=== PATIENT | male | born 1940 | race Caucasian/White ===

== ENCOUNTER 2023-09-06 17:06 | Emergency (ER) | payer MEDICARE, OTHER, SELFPAY ==
[2023-09-06 17:08] VITALS: BP 136/73
--- NOTE | 2023-09-06 18:09 | EDRN ---
Pt's says he has been getting monthly optivo infusions for melanoma that spread to pt's lungs. Recent PET scans reportedly showed spots on lungs were gone. Pt received last infusion last week and since has been more tired than usual, 'his
look has changed', he is cold all the time, has intermittent dizziness, is confused and has no appetite. says he has had these symptoms x 1 week and when their son came over today, he was alarmed and told her pt needed to see a doctor so
called Dr Orozco's office and was advised to take pt to ED for possible dehydration. Pt says 'I sherie campbell.' Pt denies pain, no cp, sob, abd pain, fever/chills/cough, urinary symptoms.
--- NOTE | 2023-09-06 18:25 | ED.GENMED ---
History of Present Illness
General
Chief Complaint: Fatigue
Source: patient, records and significant other
Exam Limitations: none
Time Seen by Provider: 09/06/23 18:00
Nursing documentation reviewed up to this point in time: agreed with
Travel History
Have you had any contact with someone who has COVID-19?: No
Do you have any symptoms of coronavirus? Fever > 100 degrees, chills, cough, shortness of breath, sore throat, loss of taste or smell, muscle aches, or headache?: No
History of Present Illness
History of Present Illness:
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 Sow, oncology, atrial fibrillation currently anticoagulated on
Eliquis, CAD with cardiac stents, prostate cancer who presents to the emergency department accompanied by his for evaluation of generalized weakness. reports that the patient received his infusion last week. She reports that since then,
the patient has become increasingly weak. She reports that is to the point where she fears the patient is going to fall because he feels so weak. Patient reports that his legs feel week bilaterally. Patient denies focal weakness in one extremity.
She reports that his friends and family all agree that he just looks unwell. contacted the patient's oncologist today who referred him to the emergency department for further evaluation. Patient denies presyncope, syncope, recent falls.
Patient denies headache, vision changes, chest pain, shortness of breath, palpitations, abdominal pain, nausea, vomiting. notes decreased appetite and decreased fluid intake. Patient denies constipation. Patient reports he has been urinating
without difficulty. Patient does note bilateral lower extremity edema which is not typical for him. notes that the patient has been more forgetful than usual.
Past History
Past History
ED Past Medical History: CAD, Cancer (metastic melanoma, prostate), HTN and Hypercholesterolemia
Social History
Tobacco: Former smoker
Alcohol: Occasional
Drug: None
Personal:
Family History
Family History: Early CAD
Review of Systems
Review of Systems
Allergies reviewed?: Yes
All Other Systems: ROS reviewed and negative except as documented in HPI and ROS
Constitutional: Reports fatigue and chills
EENT: Reports no symptoms
Respiratory: Reports no symptoms; Denies cough, hemoptysis or trouble breathing
Cardiac: Reports no symptoms; Denies chest pain or palpitations
ABD/GI: Reports no symptoms; Denies abdominal pain, nausea, vomiting or constipated
: Reports no symptoms; Denies dysuria
Musculoskeletal: Reports other (bilateral lower extremity edema)
Skin: Reports no symptoms
Neurological: Reports weakness; Denies dizzy or headache
Endocrine: Reports no symptoms
Hematologic/Lymphatic: Reports no symptoms
Psychiatric: Reports no symptoms
Phy Exam
General Physical Exam
General Presentation: well appearing and no apparent distress
General Skin: warm and dry
General Habitus: normal
General Mental: alert
General Hydration: dry mucous membranes
ENT Exam
ENT Exam: EOMI, pharynx normal, neck supple and normocephalic
Eye Exam
Eye Exam: PERRL, EOMI, cornea clear and conjunctiva normal
Cardiovascular Exam
Cardiovascular Exam: no murmur, normal peripheral pulses, irregularly irregular and other (2+ bilateral pretibial pitting edema)
Pulmonary Exam
Pulmonary Exam: lungs clear, no respiratory distress, no rales, no crackles, no rhonchi, no stridor, no wheezing and no cough
Gastrointestinal Exam
Gastrointestinal Exam: normal bowel sounds, non tender, soft, no organomegaly, no pulsatile mass and non distended
Neurological Exam
Neurological Exam: alert, oriented x3, CN II-XII intact, no motor deficits, no sensory deficits, speech normal and cerebellum intact
Musculoskeletal Exam
Musculoskeletal Exam: full ROM
Skin Exam
Skin Exam: normal color, warm/dry, no rash and no petechia
Psychiatric Exam
Psychiatric Exam: normal mood/affect
Course
Orders/Labs/Results
Orders:
Orders
09/06/23 18:22
CT Head W/o Iv Contrast Urgent
Comment:
Reason For Exam: confusion, known metastatic melanoma
0.9% Sodium Chloride 250 ml [Nss] 500 ml IV BOLUS
09/06/23 18:23
CR Chest - 2 Views Urgent
Comment:
Reason For Exam: confusion, dizzy, cancer
09/06/23 18:24
Electrocardiogram (*1) Urgent
Reason for Study: Vertigo / Dizzy
EKG- Treatment ONCE
09/06/23 19:32
Complete Blood Count/With Diff Urgent
Comprehensive Metabolic Panel Urgent
Troponin I Urgent
09/06/23 19:54
Urinalysis Reflex To Culture Urgent
Date Specimen was Collected: 09/06/23
Time Specimen was Collected: 19:43
Urine Microscopic Reflex Cult Urgent
09/06/23 20:29
Potassium Chloride [KCl] 40 meq PO NOW STA
Abnormal Lab Results
09/06/23 09/06/23
19:32 19:54
WBC 4.6 L 10^3/uL
(4.8-10.8)
RBC 3.57 L 10^6/uL
(4.70-6.10)
Hgb 11.1 L g/dL
(13.0-18.0)
Hct 31.8 L %
(39.0-52.0)
MCH 31.1 H pg
(27.0-31.0)
MPV 10.9 H fL
(7.4-10.4)
Absolute Lymphs (auto) 0.8 L 10^3/uL
(1.2-3.4)
Absolute Eos (auto) 0.9 H 10^3/uL
(0-0.7)
Lymphocytes % 16.7 L %
(20.5-51.1)
Monocytes % 9.5 H %
(1.7-9.3)
Eosinophils % 18.7 H %
(0-6)
Sodium 134 L mmol/L
(135-145)
Potassium 3.4 L mmol/L
(3.5-5.1)
Creatinine 0.4 L mg/dL
(0.7-1.3)
Glucose 168 H mg/dl
(70-99)
Alkaline Phosphatase 158 H U/L
(38-126)
Total Protein 5.2 L g/dl
(6.3-8.2)
Albumin 3.1 L g/dl
(3.5-5.0)
Urine Ketones Trace A
(Negative)
Ur Occult Blood Reflex 4+ A
(Negative)
Urine RBC 50-60 A /HPF
(0-2)
Urine Bacteria (Reflex) Few A
(Negative)
09/06/23 19:32
09/06/23 19:32
Vital Signs
Initial and Last Documented VS:
Initial Vital Signs
Temp Pulse Resp BP Pulse Ox
98.4 F 95 16 136/73 99
09/06/23 17:08 09/06/23 17:08 09/06/23 17:08 09/06/23 17:08 09/06/23 17:08
Last Documented Vital Signs
Temp Pulse Resp BP Pulse Ox
98.4 F 88 14 145/76 99
09/06/23 17:08 09/06/23 20:04 09/06/23 20:04 09/06/23 20:04 09/06/23 17:08
*Critical Care Note
Total Time (30-74mins, 75-104mins- exclusive of procedures): Not Applicable
Update Note
Update Note:
83 yo male currently being treated for metastatic melanoma with immunotherapy presents with increased fatigue, generalized weakness of the past week. also concerned about issues with his memory. Patient has had decreased appetite, does
not feel that he is drinking enough fluids. On arrival, VSS, afebrile. On exam, pt is well-appearing and in NAD, he has a benign abdomen, he has no focal neurological deficits. Will check CT head to rule out metastasis, intracranial hemorrhage.
Will check CXR, EKG, labs, urinalysis. Will give small fluid bolus and reassess.
20:27 Patient reevaluated and states that he feels 'marvelous.' I discussed all results with the patient. CT head negative, CXR without acute disease. Labs reassuring. UA with blood, which could be secondary to the patient's known prostate
issues, but no evidence of infection. I told the patient that I will replete the patient's potassium. I spoke with the patient and his at length regarding admission vs discharge to home. Patient and his feel comfortable with the patient
being discharged to home, as do I. Patient states he will follow-up as an outpatient with his doctor. Patient and his were educated on strict return precautions, they expressed understanding of the plan and agreed.
ED Attending Note
-
Portions of this chart may have been created with voice recognition software.� Occasional wrong word or��sound alike� substitutions may have occurred due to the inherent limitations of voice recognition software.
Discharge Plan
Departure
Patient Disposition: Home (Routine Discharge)
Date of Disposition: 09/06/23
Time of Disposition: 20:29
Patient with high blood pressure during this ER visit?: Yes
Condition: Good
Covid-19: Not Applicable
Discharge Problem:
Hypokalemia, Generalized weakness
Instructions: Hypokalemia (DC), Generalized Weakness (DC)
Prescriptions:
No Action
atorvastatin [Lipitor] 40 mg Tablet
40 mg PO QPM
metoprolol succinate [Toprol XL] 50 mg Tablet Extended Release 24 Hr
50 mg PO DAILY
lisinopril 20 mg Tablet
20 mg PO DAILY
tamsulosin [Flomax] 0.4 mg Capsule
0.8 mg PO DAILY
amlodipine [Norvasc] 10 mg Tablet
5 mg PO DAILY
Eliquis 5 mg Tablet
5 mg PO BID
Opdivo 100 mg/10 mL Solution
0 mg IV Q3W
Referrals:
UNKNOWN - PT DOES,NOT KNOW [Unknown Provider] -
Roel Sow MD [Active] - Follow up in 2-3 days
Activity Restrictions/Additional Instructions:
You were seen in the emergency department for evaluation of generalized weakness and forgetfulness. While you were in the emergency department, you had an EKG, CT of your head, chest x-ray which shows no dangerous abnormalities. Your labs
demonstrated a slightly low potassium level, therefore you were given a potassium supplement while you were in the emergency department today. The remainder of your labs did not show any dangerous abnormalities. Your urine did show blood in the
urine, please discuss this with your urologist. Please follow up with your oncologist. Please return to the emergency department for worsening weakness, if you fall or pass out or feel like you are going to fall or pass out, if you have chest
pain, shortness of breath, abdominal, vomiting, or for any other worsening or concerning symptoms.
Interventions
Interventions:
*Risk Screen - Suicide Last Done: 09/06/23 17:08
*General Assessment Last Done: 09/06/23 17:08
*Neglect/Abuse Screening Last Done: 09/06/23 17:08
*ED COVID-19 Vaccine History Last Done: 09/06/23 17:53
Discharge Date and Time
Print Language: ALBANIAN
--- NOTE | 2023-09-06 18:55 | PHANOTE ---
med rec note- patient spouse and patient are confused about patient meds, spouse has a 2021 med list but strength do not match pharmacy or ecw. spouse also stated patient on htcz but there not pharmacy fills, maybe using (as she on it too) but
as per ecw on 06/06/23,06/11/23,05/30/23 he was instructed not to take this medication
[2023-09-06 19:01] VITALS: BP 129/81
[2023-09-06 19:42] LABS: % Basophils 0.9 % (0-2); % Eosinophils 18.7 % (0-6); % Immature Granulocytes 0.2 % (0-0.5); % Lymphocytes 16.7 % (20.5-51.1); % Monocytes 9.5 % (1.7-9.3); Absolute Eosinophils 0.9 10^3/uL (0-0.7); Absolute Lymphocytes 0.8 10^3/uL (1.2-3.4); Absolute Monocytes 0.4 10^3/uL (0.1-0.6); Absolute Neutrophils 2.5 10^3/uL (1.4-6.5); Hematocrit 31.8 % (39.0-52.0); Hemoglobin 11.1 g/dL (13.0-18.0); Mean Corp Hgb Conc. 34.9 g/dL (33.0-37.0); Mean Corpuscular Hgb 31.1 pg (27.0-31.0); Mean Corpuscular Volume 89.1 fL (80.0-94.0); Mean Platelet Volume 10.9 fL (7.4-10.4); Nucleated Red Blood Cells % 0 % (-); Platelet Count 165 10^3/uL (130-400); Red Blood Cell Count 3.57 10^6/uL (4.70-6.10); Red Cell Dist. Width 12.5 % (11.5-14.5); White Blood Cell Count 4.6 10^3/uL (4.8-10.8)
[2023-09-06] MEDS: NSS 500 IV (19:52)
[2023-09-06 20:01] LABS: Urine Albumin Negative (Neg - Trace); Urine Bilirubin Negative (Negative); Urine Character Clear (Clear); Urine Color Yellow; Urine Glucose Negative (Negative); Urine Ketone Trace (Negative); Urine Leukocyte Negative (Negative); Urine Nitrite Negative (Negative); Urine Occult Blood 4+ (Negative); Urine Urobilinogen Negative (Neg - 1+)
[2023-09-06 20:04] VITALS: BP 145/76
[2023-09-06 20:05] LABS: ALT (SGPT) 30 U/L (0-50); AST (SGOT) 34 U/L (17-59); Albumin 3.1 g/dl (3.5-5.0); Alkaline Phosphatase 158 U/L (38-126); Blood Urea Nitrogen 11 mg/dl (9-20); Calcium 8.8 mg/dl (8.4-10.2); Carbon Dioxide 27 mmol/L (22-30); Chloride 106 mmol/L (98-107); Glucose 168 mg/dl (70-99); Potassium 3.4 mmol/L (3.5-5.1); Sodium 134 mmol/L (135-145); Total Bilirubin 0.6 mg/dl (0.2-1.3); Total Protein 5.2 g/dl (6.3-8.2); eGFR > 60.00
[2023-09-06 20:06] LABS: Troponin I < 0.012 ng/ml
[2023-09-06 20:07] LABS: Urine Squamous Cell 0-2 /LPF (Few)
[2023-09-06 20:10] LABS: Urine Bacteria Few (Negative); Urine Red Blood Cell 50-60 /HPF (0-2); Urine White Cell 0-2 /HPF (0-5)
[2023-09-06] MEDS: KCL 40 MEQ PO (20:34)
--- NOTE | 2023-09-06 21:05 | EDRN ---
Pt and his given discharge instructions - [facility] called to deaccess pt's port
== END 2023-09-06 21:20 | disposition home or self-care (01) ==
LOC: EMR 17:06
PROVIDERS: Physician Assistant Medical; EMERGENCY PHYSICIAN Emergency Medicine; FAMILY PHYSICIAN Internal Medicine
DX: E87.6 Hypokalemia (principal); R53.1 Weakness; C43.9 Malignant melanoma of skin, unspecified; C78.00 Secondary malignant neoplasm of unspecified lung; I25.10 Atherosclerotic heart disease of native coronary artery without angina pectoris; C61 Malignant neoplasm of prostate; E78.00 Pure hypercholesterolemia, unspecified; I10 Essential (primary) hypertension
CPT/HCPCS: 99284; 96360; 70450; 71046; 80053; 81003; 81015; 84484; 85025; 93005

== ENCOUNTER → 2023-10-03 16:27 | Outpatient (REF) | payer MEDICARE, OTHER, SELFPAY | LOC: MRI 3T 16:27 | PROVIDERS: ATTENDING PHYSICIAN Internal Medicine Hematology & Oncology | DX: C43.4 Malignant melanoma of scalp and neck (principal); C78.00 Secondary malignant neoplasm of unspecified lung; E03.9 Hypothyroidism, unspecified; Z51.12 Encounter for antineoplastic immunotherapy | CPT/HCPCS: 70553; A9575 ==

== ENCOUNTER 2023-10-07 10:58 | Emergency (ER) | payer MEDICARE, OTHER, SELFPAY ==
[2023-10-07] VITALS (7 sets, daily range): BP systolic 112–118; BP diastolic 67–99; PULSE 94; O2SAT 99
[2023-10-07 11:35] LABS: % Basophils 1.7 % (0-2); % Eosinophils 18.2 % (0-6); % Immature Granulocytes 0.2 % (0-0.5); % Lymphocytes 15.3 % (20.5-51.1); % Monocytes 9.5 % (1.7-9.3); % Neutrophils 55.1 % (42.2-75.2); Absolute Basophils 0.1 10^3/uL (0-0.2); Absolute Eosinophils 0.9 10^3/uL (0-0.7); Absolute Lymphocytes 0.7 10^3/uL (1.2-3.4); Absolute Monocytes 0.5 10^3/uL (0.1-0.6); Absolute Neutrophils 2.6 10^3/uL (1.4-6.5); Hematocrit 33.2 % (39.0-52.0); Hemoglobin 11.4 g/dL (13.0-18.0); Mean Corp Hgb Conc. 34.3 g/dL (33.0-37.0); Mean Corpuscular Hgb 30.1 pg (27.0-31.0); Mean Corpuscular Volume 87.6 fL (80.0-94.0); Mean Platelet Volume 10.3 fL (7.4-10.4); Nucleated Red Blood Cells % 0 % (-); Platelet Count 199 10^3/uL (130-400); Red Blood Cell Count 3.79 10^6/uL (4.70-6.10); Red Cell Dist. Width 13.3 % (11.5-14.5); White Blood Cell Count 4.7 10^3/uL (4.8-10.8)
[2023-10-07 11:53] LABS: ALT (SGPT) 18 U/L (0-50); AST (SGOT) 39 U/L (17-59); Albumin 3.5 g/dl (3.5-5.0); Alkaline Phosphatase 291 U/L (38-126); Blood Urea Nitrogen 7 mg/dl (9-20); Carbon Dioxide 21 mmol/L (22-30); Chloride 103 mmol/L (98-107); Glucose 70 mg/dl (70-99); Lipase 19 U/L (23-300); Potassium 3.9 mmol/L (3.5-5.1); Sodium 133 mmol/L (135-145); Total Bilirubin 0.8 mg/dl (0.2-1.3); Total Protein 5.7 g/dl (6.3-8.2); eGFR > 60.00
--- NOTE | 2023-10-07 14:46 | ED.GENMED ---
History of Present Illness
General
Chief Complaint: Weakness
Source: patient
Exam Limitations: none
Time Seen by Provider: 10/07/23 14:26
Travel History
Have you had any contact with someone who has COVID-19?: No
Do you have any symptoms of coronavirus? Fever > 100 degrees, chills, cough, shortness of breath, sore throat, loss of taste or smell, muscle aches, or headache?: No
History of Present Illness
History of Present Illness:
See MDM
Past History
Past History
ED Past Medical History: CAD, Cancer (metastic melanoma, prostate), HTN and Hypercholesterolemia
Social History
Tobacco: Former smoker
Alcohol: Occasional
Drug: None
Personal:
Family History
Family History: Early CAD
Phy Exam
Physical Exam
Physical Exam:
See MDM
Course
Orders/Labs/Results
Orders:
Orders
10/07/23 11:28
CBC/With Diff [Complete Blood Count/With Diff] Urgent
CMP [Comprehensive Metabolic Panel] Urgent
Lipase Urgent
10/07/23 14:43
Urinalysis Reflex To Culture Urgent
0.9% Sodium Chloride 1000 ml [Nss] 1,000 ml IV BOLUS
10/07/23 14:44
Electrocardiogram (*1) Urgent
Reason for Study: Fatigue / Weakness
Case Management Consult ONCE
Case Management Consult: VN/Home Care
EKG- Treatment ONCE
Pt Eval And Treat Urgent
Activity Level: Ambulate
Abnormal Lab Results
10/07/23
11:28
WBC 4.7 L 10^3/uL
(4.8-10.8)
RBC 3.79 L 10^6/uL
(4.70-6.10)
Hgb 11.4 L g/dL
(13.0-18.0)
Hct 33.2 L %
(39.0-52.0)
Absolute Lymphs (auto) 0.7 L 10^3/uL
(1.2-3.4)
Absolute Eos (auto) 0.9 H 10^3/uL
(0-0.7)
Lymphocytes % 15.3 L %
(20.5-51.1)
Monocytes % 9.5 H %
(1.7-9.3)
Eosinophils % 18.2 H %
(0-6)
Sodium 133 L mmol/L
(135-145)
Carbon Dioxide 21 L mmol/L
(22-30)
BUN 7 L mg/dl
(9-20)
Creatinine 0.4 L mg/dL
(0.7-1.3)
Alkaline Phosphatase 291 H U/L
(38-126)
Total Protein 5.7 L g/dl
(6.3-8.2)
Lipase 19 L U/L
(23-300)
10/07/23 11:28
10/07/23 11:28
Vital Signs
Initial and Last Documented VS:
Initial Vital Signs
Temp Pulse Resp BP Pulse Ox
98.3 F 110 16 112/69 98
10/07/23 11:12 10/07/23 11:12 10/07/23 11:12 10/07/23 11:12 10/07/23 11:12
Last Documented Vital Signs
Temp Pulse Resp BP Pulse Ox
98.3 F 110 16 112/69 98
10/07/23 11:12 10/07/23 11:12 10/07/23 11:12 10/07/23 11:12 10/07/23 11:12
MDM/Problems Addressed
Differential Diagnosis Includes:
HPI and MDM Narrative:
83-year-old male presenting with his for evaluation of generalized weakness. Patient has active lung cancer. He receives chemotherapy infusions. Ever since his last fusion, states that he is worn out and sleeping most of the day. He
has had persistent diarrhea and not eating or drinking much. She has been trying to force him to drink has been giving him Imodium
When he arrived to the emergency department, blood work was already obtained. I discussed no significant abnormality to explain generalized weakness. He denies urinary symptoms. Will obtain urinalysis and provide IV fluids and have patient had
treatment and physical therapy evaluate. We did discuss the likelihood of adverse reaction to chemotherapy
Physical exam
General: Well appearing and non-toxic
HEENT: protecting airway. Mild dry mucous membranes
Neck: appears supple
CV: No evidence of cyanosis. regular rate and irregular rhythm
Resp: No accessory muscle use. Lungs clear
Abd: Non-distended
Extremities: No deformities
Neuro: alert
Psych: Normal affect
Skin: Intact
Problems Addressed including Acute and Chronic Conditions affecting care:
1. Generalized weakness
Acuity: acute
Prognosis: stable
Details: Likely in the setting of side effect of chemotherapy. Will provide IV fluids and obtain urinalysis to look for alternative reasons for weakness.
Updates
I updated patient and in regards to brain MRI performed a few days ago. There is no evidence of metastasis. Will have physical therapy and case management evaluate
Patient feeling better after fluids. Case discussed with case management who talked to physical therapy who will set up home nursing. Patient and feel comfortable with this plan. Patient still not provided a urine specimen but he is denying
UTI symptoms. Patient and feel comfortable going home without urinalysis
Differential Diagnosis (but not limited to): Dehydration, UTI, metastatic disease
Testing considered: CT head but he just had brain MRI
Drug therapy (if applicable): OTC meds, please see d/c instruction regarding Rx drugs
Amount and/or Complexity of Data Reviewed
Clinical info obtained from: Patient
External data reviewed: N/A
Labs I independently reviewed (but not limited to): Hgb stable
Radiology: N/A
Pulse Ox: not hypoxic
EKG independently reviewed: A-fib, normal axis, no STEMI
Commanding [employer]: N/A
Critical Care: N/A
Risk of Complication:
Social Determinants of health: Good social support
Discussed with other providers: Case management
Escalation of Care includes Admit/Obs: After being observed in the Emergency Department, pt stable for discharge.
Occasional wrong word or 'sound a like' substitutions may have occurred due to the inherent limitations of voice recognition software. Read the chart carefully and recognize, using context, where substitutions have occurred.
*Critical Care Note
Total Time (30-74mins, 75-104mins- exclusive of procedures): Not Applicable
ED Attending Note
-
Portions of this chart may have been created with voice recognition software.� Occasional wrong word or��sound alike� substitutions may have occurred due to the inherent limitations of voice recognition software.
Discharge Plan
Departure
Patient Disposition: Home (Routine Discharge)
Date of Disposition: 10/07/23
Time of Disposition: 16:46
Patient with high blood pressure during this ER visit?: No
Discharge Problem:
Generalized weakness
Instructions: Generalized Weakness (DC)
Prescriptions:
No Action
atorvastatin [Lipitor] 40 mg Tablet
40 mg PO QPM
metoprolol succinate [Toprol XL] 50 mg Tablet Extended Release 24 Hr
50 mg PO DAILY
lisinopril 20 mg Tablet
20 mg PO DAILY
tamsulosin [Flomax] 0.4 mg Capsule
0.4 mg PO BID
amlodipine [Norvasc] 10 mg Tablet
5 mg PO DAILY
Eliquis 5 mg Tablet
5 mg PO BID
Opdivo 100 mg/10 mL Solution
0 mg IV Q3W
ondansetron HCl [Zofran] 8 mg Tablet
8 mg PO [id number] PRN (Reason: nausea)
loperamide 2 mg Tablet
2 mg PO Q4HPRN PRN (Reason: diarrhea)
aspirin 81 mg Tablet,Delayed Release (Dr/Ec)
81 mg PO DAILY
potassium 99 mg Tablet
99 mg PO DAILY
magnesium oxide 250 mg magnesium Tablet
250 mg PO DAILY
Referrals:
Tomás Yost MD [Family Provider] -
Activity Restrictions/Additional Instructions:
Please return for any worsening symptoms.
You may return at any time if you have further concerns.
Please follow up with your doctor at the first available appointment, preferably this week.
Please continue to follow-up with the casework supervisor to set up home care.
Thank you for choosing [facility].
Discharge Date and Time
Print Language: YORUBA
[2023-10-07] MEDS: NSS 1000 IV (15:54)
--- NOTE | 2023-10-07 16:12 | CM ---
Patient seen bedside with spouse Daisy.
Patient lives with spouse in a 2 story home with 1 step to enter.
Patient independent with ambulation without assistive devices.
PCP and pharmacy verified.
No hx VN.
PT recommending VN.
Options reviewed.
Referral to [facility], spoke with Sanjuana from [facility] and will accept.
Plan: home with VN
[facility] VN
== END 2023-10-07 18:01 | disposition home or self-care (01) ==
LOC: EMR 10:58
PROVIDERS: Emergency Medicine; EMERGENCY PHYSICIAN Student in an Organized Health Care Education/Training Program; FAMILY PHYSICIAN Internal Medicine
DX: R53.1 Weakness (principal); R53.83 Other fatigue; R19.7 Diarrhea, unspecified; C34.90 Malignant neoplasm of unspecified part of unspecified bronchus or lung; Z87.891 Personal history of nicotine dependence
CPT/HCPCS: 99284; 96374; 96361; 80053; 83690; 85025; 93005